=== PATIENT | female | born 1995 | race African-American/Black ===

== ENCOUNTER 2019-04-30 23:21 | Emergency (ER) | payer SELFPAY ==
[2019-05-01] MEDS ORDERED: PREDNISONE 20 MG TABLET PO ONE (03:57)
[2019-05-01] MEDS ORDERED: FAMOTIDINE 20 MG TABLET PO ONE (03:58)
--- NOTE | 2019-05-01 04:01 | ER Document Report ---
HPI - HPI Time Seen by Provider: 05/01/19 03:46 Pain Level: Denies Context: Patient is a 23-year-old female that comes emergency department for chief complaint of breaking out into an itchy rash over the past 24 hours. This is located on her arms, thighs, abdomen, neck, and back. She states she is allergic to Benadryl and it makes her feel like she is having a panic attack, she states she is unsure what to take. She denies history of the same. She denies obvious exposures. She denies daily medications, . She denies any other complaints including difficulty swallowing or breathing. - CONSTITUTIONAL Constitutional: DENIES: Fever, Chills - REPRODUCTIVE LMP: 04/20/2019 Reproductive: DENIES: : Past Medical History - General Information source: Patient - Social History Smoking Status: Never Smoker Chew tobacco use (# tins/day): No Frequency of alcohol use: Rare Drug Abuse: None Lives with: Family Family History: Reviewed & Not Pertinent Patient has suicidal ideation: No Patient has homicidal ideation: No Surgical Hx: Negative - Immunizations Immunizations up to date: Yes Hx Diphtheria, Pertussis, Tetanus Vaccination: Yes Vertical Provider Document - CONSTITUTIONAL General Appearance: WD/WN, No Apparent Distress - INFECTION CONTROL TRAVEL OUTSIDE OF THE [place] IN LAST 30 DAYS: No - HEENT HEENT: Atraumatic, Normal ENT Exam - Normal oropharyngeal exam, normal tongue, patent airway, normal uvula, Normocephalic - NECK Neck: Normal Inspection - RESPIRATORY Respiratory: Breath Sounds Normal, No Respiratory Distress. negative: Wheezing - CARDIOVASCULAR Cardiovascular: Regular Rate, Regular Rhythm - GI/ABDOMEN Gastrointestinal: Abdomen Soft, Abdomen Non-Tender - BACK Back: Normal Inspection - MUSCULOSKELETAL/EXTREMETIES Musculoskeletal/Extremeties: MAEW, FROM, Non-Tender - NEURO Level of Consciousness: Awake, Alert, Appropriate - DERM Integumentary: Warm, Dry, Rash - Scattered urticaria over the forearms, mid to lower back, abdomen, neck. No vesicles, bulla, induration, fluctuance, pustules, petechiae, or other abnormality noted Course - Re-evaluation Re-evalutation: Patient appears to have urticaria without signs of anaphylaxis. This has not progressed over the evening. This is also not resolved. Patient states she is allergic diphenhydramine, she appears to have the opposite response from sedation and becomes agitated with this. I did discuss trying long-acting histamine 1 blockers, placed on famotidine, given prednisone, discussed expectations, follow-up, return precautions. Patient states appreciation and agreement. Stable at time of discharge. - Vital Signs Vital signs: Temp Pulse Resp BP Pulse Ox 98.2 F 94 18 128/79 H 98 04/30/19 23:35 04/30/19 23:27 04/30/19 23:35 04/30/19 23:27 04/30/19 23:35 Discharge - Discharge Clinical Impression: Rash Condition: Stable Disposition: HOME, SELF-CARE Additional Instructions: Your evaluation is most consistent with hives, and allergic reaction. Unfortunately the cause of this is uncertain at this time. I recommend the prednisone, famotidine, and also [id number] medication such as cetirizine or loratadine. I recommend taking the famotidine and cetirizine or loratadine for 1 week, take prednisone to completion. Follow-up with primary care. Return for any concerning symptoms including swelling of the face, lips, tongue, throat, or any other concerning or worsening symptoms. Prescriptions: Prednisone [Deltasone 10 mg Tablet] 10 mg PO ASDIR PRN #21 tablet PRN Reason: Famotidine [Pepcid 20 mg Tablet] 20 mg PO BID #14 tablet
[2019-05-01 04:12] VITALS: BP 131/74
== END 2019-05-01 04:11 | disposition home or self-care (01) ==
LOC: ER 23:21
DX: R21 Rash and other nonspecific skin eruption (principal); L29.8 Other pruritus; Z88.8 Allergy status to other drugs, medicaments and biological substances
CPT/HCPCS: 99282; J7512